=== PATIENT | male | born 1965 | race Caucasian/White ===

== ENCOUNTER 2018-12-30 06:33 | Emergency (ER) | payer OTHER ==
[~2018-12-30] VITALS: Ht 180.3 cm; Wt 57.2 kg
[2018-12-30 07:27] VITALS: BP 116/78
[2018-12-30] MEDS ORDERED: KETOROLAC TROMETH 60MG/2ML VIAL IM ONE (07:45)
[2018-12-30] MEDS ORDERED: METHOCARBAMOL 500 MG TAB PO ONE (07:45)
== END 2018-12-30 08:12 | disposition home or self-care (01) ==
LOC: ER 06:33
DX: M54.2 Cervicalgia (principal); G89.29 Other chronic pain; Z88.0 Allergy status to penicillin
CPT/HCPCS: 93005; 96372; 99283; J1885

== ENCOUNTER 2019-01-05 09:08 | Emergency (ER) | payer OTHER ==
[~2019-01-05] VITALS: Ht 177.8 cm; Wt 61.2 kg
[2019-01-05 09:35] VITALS: BP 116/75
[2019-01-05] MEDS ORDERED: KETOROLAC TROMETH 60MG/2ML VIAL IM ONE (10:00)
== END 2019-01-05 10:25 | disposition home or self-care (01) ==
LOC: ER 09:08
DX: G89.29 Other chronic pain (principal); M54.6 Pain in thoracic spine; Z88.0 Allergy status to penicillin
CPT/HCPCS: 93005; 96372; 99283; J1885

== ENCOUNTER 2024-08-30 00:06 | Inpatient (IN) | payer MEDICAID, OTHER ==
[~2024-08-30] VITALS: Ht 182.9 cm; Wt 60.9 kg
[2024-08-30] VITALS (8 sets, daily range): BP systolic 92–95; BP diastolic 58–60; PULSE 74–120; RESP 16–20; TEMP 98.2–99.8; O2SAT 94–98
--- NOTE | 2024-08-30 00:24 | ED.PDOC ---
SOB-HPI HPI Comments 59-year-old male who came to ER via EMS for cough. Per EMS, patient has been presenting with cough for the past few days. Was seen at [facility] 2 days ago as prescribed of medications, Mucinex among others, however patient did not fill up the prescription. Patient coming in today still with cough dry nonp roductive. Patient is a very poor informant. Chief Complaint: Cough Time Seen by MD: 00:24 Primary Care Provider: UNKNOWN Reviewed notes: Nurses Notes Information Source: Patient, Emergency Med Personnel Mode of Arrival: EMS Severity: Moderate Timing: Hours Duration: Since onset Context: At Rest, With Light Exertion PE Risk Factors: None History of: None Prehospital treatment: None Modifying Factors: Nothing Associated Signs and Symptoms: Cough If cough with SOB: Non-Productive Past Medical History PAST MEDICAL HISTORY: Denies Surgical History: Denies all surgeries Family History Family History: Reviewed,noncontributory to illness Social History Smoker: Non-Smoker Alcohol: Denies ETOH Use Drugs: Denies Drug Use Lives In: Home Constitutional: denies: chills, diaphoresis, fatigue, fever, malaise, sweats, weakness, others EENTM: denies: blurred vision, double vision, ear bleeding, ear discharge, ear drainage, ear pain, ear ringing, eye pain, eye redness, hearing loss, mouth pain, mouth swelling, nasal discharge, nose bleeding, nose congestion, nose pain, photophobia, tearing, throat pain, throat swelling, voice changes, others Respiratory: reports: cough; denies: hemoptysis, orthopnea, SOB at rest, shortness of breath, SOB with excertion, stridor, wheezing, others Cardiovascular: denies: chest pain, dizzy spells, diaphoresis, Dyspnea on exertion, edema, irregular heart beat, left arm pain, lightheadedness, palpitations, PND, syncope, others Gastrointestinal: denies: abdomen distended, abdominal pain, blood streaked bowels, constipated, diarrhea, dysphagia, difficulty swallowing, hematemesis, melena, nausea, poor appetite, poor fluid intake, rectal bleeding, rectal pain, vomiting, others Genitourinary: denies: burning, dysuria, flank pain, frequency, hematuria, incontinence, penile discharge, penile sore, pain, testicle pain, testicle swelling, urgency, others Neurological: denies: dizziness, fainting, headache, left sided numbness, left sided weakness, numbness, paresthesia, pre-existing deficit, right sided numbness, right sided weakness, seizure, speech problems, tingling, tremors, weakness, others Musculoskeletal: denies: back pain, gout, joint pain, joint swelling, muscle pain, muscle stiffness, neck pain, others Integumetry: denies: bruises, change in color, change in hair/nails, dryness, laceration, lesions, lumps, rash, wounds, others Allergic/Immunocompromised: denies: Difficulty Healing, Frequent Infections, Hives, Itching, others Hematologic/Lymphatic: denies: anemia, blood clots, easy bleeding, easy bruising, swollen glands, others Endocrine: denies: excessive hunger, excessive sweating, excessive thirst, excessive urination, flushing, intolerance to cold, intolerance to heat, unexplained weight gain, unexplained weight loss, others Psychiatric: denies: anxiety, bipolar disorder, depression, hopeless, panic disorder, schizophrenia, sleepless, suicidal, others Physical Exam General Appearance: No Apparent Distress, Normal HEENT: Normal ENT Inspection, Pharynx Normal, TMs Normal Neck: Full Range of Motion, Non-Tender, Normal, Normal Inspection Respiratory: Chest Non-Tender, Lungs Clear, No Accessory Muscle Use, No Respiratory Distress, Normal Breath Sounds Cardiovascular: No Edema, No JVD, No Murmur, No Gallop, Normal Peripheral Pulses, Regular Rate/Rhythm Breast Exam: Deferred Gastrointestinal: No Organomegaly, Non Tender, No Pulsatile Mass, Normal Bowel Sounds, Soft Genitalia: Deferred Pelvic: Deferred Rectal: Deferred Extremities: No calf tenderness, Normal capillary refill, Normal inspection, Normal range of motion, Non-tender, No pedal edema Musculoskeletal : Apperance: Normal 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 Was a procedure done?: No Differential Dx Differential Diagnosis: Asthma, Bronchitis, Pneumonia, Respiratory Distress, URI X-Ray, Labs, Meds, VS Vital Signs Date Time Temp Pulse Resp B/P (MAP) Pulse Ox O2 Delivery O2 Flow Rate FiO2 08/30/24 01:13 98.2 116 18 104/65 (78) 95 Lab Test 08/30/24 00:50 Range/Units White Blood Count 22.2 H 4.4-10.8 10^3/uL Red Blood Count 4.44 L 4.5-5.90 10^6/uL Hemoglobin 13.9 13.5-17.5 g/dL Hematocrit 41.5 41.0-53.0 % Mean Corpuscular Volume 93.4 80.0-100.0 fL Mean Corpuscular Hemoglobin 31.4 28.0-32.0 pg Mean Corpuscular Hemoglobin Concent 33.6 32.0-36.0 g/dL Red Cell Distribution Width 13.8 11.8-14.3 % Platelet Count 213 140-450 10^3/uL Mean Platelet Volume 10.1 6.9-10.8 fL Neutrophils (%) (Auto) 94.9 H 37.0-80.0 % Lymphocytes (%) (Auto) 2.4 L 10.0-50.0 % Monocytes (%) (Auto) 2.7 0.0-12.0 % Eosinophils (%) (Auto) 0.0 0.0-7.0 % Basophils (%) (Auto) 0.0 0.0-2.0 % Neutrophils # (Auto) 21.0 H 1.6-8.6 10 ^3/uL Lymphocytes # (Auto) 0.5 0.4-5.4 10 ^3/uL Monocytes # (Auto) 0.6 0-1.3 10 ^3/uL Eosinophils # (Auto) 0 0-0.8 10 ^3/uL Basophils # (Auto) 0 0-0.2 10 ^3/uL Nucleated Red Blood Cells 0.0 % Sodium Level 141 136-145 mmol/L Potassium Level 3.9 3.5-5.1 mmol/L Chloride Level 102 98-107 mmol/L Carbon Dioxide Level 26 20-31 mmol/L Anion Gap 13 5-15 Blood Urea Nitrogen 26 H 9-23 mg/dL Creatinine 1.17 0.700-1.30 mg/dL Glomerular Filtration Rate Calc 71 >90 mL/min BUN/Creatinine Ratio 22.2 H 10.0-20.0 Serum Glucose 100 74-106 mg/dL Calcium Level 9.5 8.7-10.4 mg/dL Total Bilirubin 1.2 H 0.2-1.0 mg/dL Aspartate Amino Transferase (AST) 47 H 13-40 U/L Alanine Aminotransferase (ALT) 35 7-40 U/L Alkaline Phosphatase 88 46-116 U/L Total Protein 7.8 5.7-8.2 g/dL Albumin 4.4 3.2-4.8 g/dL Time of 1ST Reevaluation: 00:21 Reevaluation 1ST: Unchanged Time of 2ND Reevaluation: 01:00 Reevaluation 2ND: Unchanged Time of 3RD Reevaluation: 04:35 Reevaluation 3RD: Unchanged Patient Education/Counseling: Diagnosis, Treatment Family Education/Counseling: No Family Present Departure 1 Departure Time of Disposition: 04:13 (WBC high, +SOB with exertion, will admit for supportive care and further workup) Impression: Primary Impression: Pneumonia Disposition: ADMITTED INPATIENT Admit to: Med Surg Condition: Guarded Discharged With: Self Critical Care Note Critical Care Time?: No Stability Stability form required: No Heart Score Heart Score: Heart Score Response (Comments) Value History N/A 0 EKG N/A 0 Age N/A 0 Risk Factors N/A 0 Troponin N/A 0 Total 0 I personally scribed for PRASHANT HEARD MD ([email or web address]) on 08/30/24 at 00:24. Electronically submitted by Adis Lloyd ([facility]). PRASHANT HEARD MD Aug 30, 2024 00:24
[2024-08-30] MEDS ORDERED: IPRATROPIUM BROM 0.5 MG/2.5ML INH SOL HHN ONE (00:30)
[2024-08-30] MEDS ORDERED: predniSONE 20 MG TAB PO ONE (00:30)
[2024-08-30] MEDS ORDERED: ALBUTEROL SULF 2.5 MG/0.5ML(0.5%) NEB SOLN HHN ONE (00:30)
[2024-08-30 01:16] LABS: Basophils # (auto) 0 10 ^3/uL (0-0.2); Eosinophils # (auto) 0 10 ^3/uL (0-0.8); Hematocrit 41.5 % (41.0-53.0); Hemoglobin 13.9 g/dL (13.5-17.5); Lymphocytes # (auto) 0.5 10 ^3/uL (0.4-5.4); Lymphocytes % (auto) 2.4 % (10.0-50.0); Mean Corpuscular Hemoglobin 31.4 pg (28.0-32.0); Mean Corpuscular Hgb Conc. 33.6 g/dL (32.0-36.0); Mean Corpuscular Volume 93.4 fL (80.0-100.0); Monocytes # (auto) 0.6 10 ^3/uL (0-1.3); Monocytes % (auto) 2.7 % (0.0-12.0); Neutrophils % (auto) 94.9 % (37.0-80.0); Platelet Count (auto) 213 10^3/uL (140-450); Red Blood Cells 4.44 10^6/uL (4.5-5.90); Red Cell Distribution Width 13.8 % (11.8-14.3); White Blood Cell 22.2 10^3/uL (4.4-10.8)
[2024-08-30 01:30] LABS: Alanine Aminotransferase 35 U/L (7-40); Albumin 4.4 g/dL (3.2-4.8); Alkaline Phosphatase 88 U/L (46-116); Anion Gap 13 (5-15); BUN/Creatinine Ratio 22.2 (10.0-20.0); Calcium 9.5 mg/dL (8.7-10.4); Carbon Dioxide 26 mmol/L (20-31); Chloride 102 mmol/L (98-107); Glucose 100 mg/dL (74-106); Potassium 3.9 mmol/L (3.5-5.1); Sodium 141 mmol/L (136-145); Total Protein 7.8 g/dL (5.7-8.2)
[2024-08-30 01:37] LABS: Aspartate Aminotransferase 47 U/L (13-40); Bilirubin, Total 1.2 mg/dL (0.2-1.0); Blood Urea Nitrogen 26 mg/dL (9-23)
--- NOTE | 2024-08-30 04:09 | DVH ---
CHEST RADIOGRAPH Indication: SOB Technique: Single frontal view of the chest was obtained Comparison: None IMPRESSION: The heart appears normal in size. Patchy airspace opacity at the right lower lung. Mild pulmonary va scular congestion and prominent interstitial markings. No sizable effusion or pneumothorax. Cervical fusion hardware.
[2024-08-30] MEDS: cefTRIAXone 1GM/50ML D5W 50 ML IV ONE (06:00)
[2024-08-30 06:30] LABS: Lactic Acid w/Reflex 2.3 mmol/L (0.4-2.0)
[2024-08-30] MEDS: AZITHROMYCIN 500MG/ 250ML 250 ML IV ONE (06:30)
[2024-08-30 07:36] LABS: Rapid Influenza A Negative (Negative); Rapid Influenza B Negative (Negative)
[2024-08-30] MEDS ORDERED: DOCUSATE SOD 100 MG CAP PO PRN (08:30)
[2024-08-30] MEDS ORDERED: ONDANSETRON HCL 4 MG/2 ML VIAL IV PRN (08:30)
--- NOTE | 2024-08-30 08:32 | DVHHP2 ---
History of Present Illness Reason for Visit: Cough History of Present Illness Dhruv Castaneda is a 59-year-old male who is a poor historian and who presents to the ED today for cough. Upon examination patient appears confused alert and oriented x2 to self and date of , unable to provide history of why the patient went to [place] also why he is here today. Patient reports that he takes medications but not sure exactly what. He also states he is allergic to penicillin but also not too sure what his allergies are. He states that he has pain management for his back pain. Patient denies smoking, illicit drug use, drinking, chest pain, shortness of breath, fever, chills, headache, nausea, vomiting, and diarrhea. Patient reports that he had multiple surgeries in his history but not sure exactly what. Past Surgical History: Other (Poor historian) Family History Poor historian Smoke: No ALCOHOL: none Drugs: None Lives: Other (With girlfriend) Domestic Violence: Neg Review of Systems Constitutional: No: Fever, Chills, Sweats, Weakness, Malaise, Other Eyes: No: Pain, Vision change, Conjunctivae inflammation, Eyelid inflammation, Other, Redness ENT: No: Ear pain, Ear discharge, Nose pain, Nose discharge, Nose congestion, Mouth pain, Mouth swelling, Throat pain, Throat swelling, Other Respiratory: Cough, Wheezing; No: Dry, Shortness of breath, SOB with excertion, Wheezing, Hemoptysis, Pleuritic Pain, Sputum, Other Cardiovascular: No: Chest Pain, Palpitations, Orthopnea, Paroxysmal Noc. Dyspnea, Edema, Lt Headedness, Other Gastrointestinal: No: Nausea, Vomiting, Abdominal Pain, Diarrhea, Constipation, Melena, Hematochezia, Other Genitourinary: No Dysuria, No Frequency, No Incontinence, No Hematuria, No Retention, No Other Musculoskeletal: No: other, neck pain, shoulder pain, arm pain, back pain, hand pain, leg pain, foot pain Skin: No: Rash, Lesions, Jaundice, Bruising, Other Neurological: No: Weakness, Numbness, Incoordination, Change in speech, Confusion, Seizures, Other Other Confused A&O x2 to self and date of Allergies: Coded Allergies: Penicillins (Verified Allergy, Unknown, 12/30/18) Exam Vital Signs Vital Signs Date Time Temp Pulse Resp B/P (MAP) Pulse Ox O2 Delivery O2 Flow Rate FiO2 12/21/24 06:00 120 18 95 Room Air* 0 21 08/30/24 06:00 99.3 137/70 (92) 99.3 General Appearance: Alert, Cooperative, No acute distress HEENT: Atraumatic, PERRLA, EOMI, Mucous membr. moist/pink Respiratory: Normal air movement Cardiovascular: Normal S1, Normal S2, No murmurs Abdominal: Normal bowel sounds, Soft, No tenderness, No hepatospenomegaly, No masses Extremities: No clubbing, No cyanosis, No edema, Normal pulses, No tenderness/swelling Skin: No breakdown, No significant lesion Neuro: Normal tone, Sensation intact Psych/Mental Status: Mood NL, Other (A&O x2 to self and date of ) Labs/Xrays Labs Test 08/30/24 07:00 08/30/24 05:38 08/30/24 00:50 Range/Units Influenza Type A Antigen Negative Negative Influenza Type B Antigen Negative Negative Lactic Acid Level 2.3 *H 0.4-2.0 mmol/L White Blood Count 22.2 H 4.4-10.8 10^3/uL Red Blood Count 4.44 L 4.5-5.90 10^6/uL Hemoglobin 13.9 13.5-17.5 g/dL Hematocrit 41.5 41.0-53.0 % Mean Corpuscular Volume 93.4 80.0-100.0 fL Mean Corpuscular Hemoglobin 31.4 28.0-32.0 pg Mean Corpuscular Hemoglobin Concent 33.6 32.0-36.0 g/dL Red Cell Distribution Width 13.8 11.8-14.3 % Platelet Count 213 140-450 10^3/uL Mean Platelet Volume 10.1 6.9-10.8 fL Neutrophils (%) (Auto) 94.9 H 37.0-80.0 % Lymphocytes (%) (Auto) 2.4 L 10.0-50.0 % Monocytes (%) (Auto) 2.7 0.0-12.0 % Eosinophils (%) (Auto) 0.0 0.0-7.0 % Basophils (%) (Auto) 0.0 0.0-2.0 % Neutrophils # (Auto) 21.0 H 1.6-8.6 10 ^3/uL Lymphocytes # (Auto) 0.5 0.4-5.4 10 ^3/uL Monocytes # (Auto) 0.6 0-1.3 10 ^3/uL Eosinophils # (Auto) 0 0-0.8 10 ^3/uL Basophils # (Auto) 0 0-0.2 10 ^3/uL Nucleated Red Blood Cells 0.0 % Sodium Level 141 136-145 mmol/L Potassium Level 3.9 3.5-5.1 mmol/L Chloride Level 102 98-107 mmol/L Carbon Dioxide Level 26 20-31 mmol/L Anion Gap 13 5-15 Blood Urea Nitrogen 26 H 9-23 mg/dL Creatinine 1.17 0.700-1.30 mg/dL Glomerular Filtration Rate Calc 71 >90 mL/min BUN/Creatinine Ratio 22.2 H 10.0-20.0 Serum Glucose 100 74-106 mg/dL Calcium Level 9.5 8.7-10.4 mg/dL Total Bilirubin 1.2 H 0.2-1.0 mg/dL Aspartate Amino Transferase (AST) 47 H 13-40 U/L Alanine Aminotransferase (ALT) 35 7-40 U/L Alkaline Phosphatase 88 46-116 U/L Total Protein 7.8 5.7-8.2 g/dL Albumin 4.4 3.2-4.8 g/dL CHEST RADIOGRAPH Indication: SOB Technique: Single frontal view of the chest was obtained Comparison: None IMPRESSION: The heart appears normal in size. Patchy airspace opacity at the right lower lung. Mild pulmonary vascular congestion and prominent interstitial markings. No sizable effusion or pneumothorax. Cervical fusion hardware. 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 Procedure Category Date Status Time Ceftriaxone 1gm/50ml PHA 08/30/24 Logged D5w (Rocephin) 09:00 Azithromycin 500mg/ PHA 08/30/24 Logged 250ml (Zithromax 50 10:00 Methylprednisolone PHA 08/30/24 Logged Sod Succ (Solu Medrol 10:00 Albuterol Medneb PHA 08/30/24 Logged (Ventolin Medneb) 12:00 Albuterol Medneb PHA 08/30/24 Logged (Ventolin Medneb) 08:30 Ipratropium Medneb PHA 08/30/24 Logged (Atrovent Medneb) 12:00 Ipratropium Medneb PHA 08/30/24 Logged (Atrovent Medneb) 08:30 Chest Xray 1 View XY 08/31/24 Logged 04:00 Lactic Acid W/ Reflex LAB 08/31/24 Verified Order 04:00 Electrocardigram EKG 08/31/24 Logged 04:00 Date of Service: Aug 30, 2024 Billing Provider: BELLA VAUGHAN Common Visit Codes: [id number] INP/OBS CARE (MOD) BELLA VAUGHAN Aug 30, 2024 08:32
[2024-08-30] MEDS: SODIUM CHLORIDE 0.9% 1,000 ML IV SCH (09:34)
[2024-08-30] MEDS: methylPREDNISolone SOD SUCC 40 MG/ML VL IV SCH (09:51)
[2024-08-30] MEDS: ENOXAPARIN SOD 40 MG/0.4 ML SYRINGE SC SCH (09:52)
[2024-08-30] MEDS: IPRATROPIUM BROM 0.5 MG/2.5ML INH SOL NEB SCH (11:20)
[2024-08-30] MEDS: ALBUTEROL SULF 2.5 MG/0.5ML(0.5%) NEB SOLN NEB SCH (11:20)
[2024-08-31] VITALS (14 sets, daily range): BP systolic 74–123; BP diastolic 48–67; PULSE 50–79; RESP 16–20; TEMP 97.4–98.3; O2SAT 93–100
[2024-08-31] MEDS ORDERED: BENZ100C97 PO (01:52)
[2024-08-31] MEDS ORDERED: ACET-1881 PO (01:52)
[2024-08-31] MEDS ORDERED: PSEU120T18 PO (01:52)
--- NOTE | 2024-08-31 05:09 | DVH ---
CHEST RADIOGRAPH Indication: pna Technique: Single frontal view of the chest was obtained Comparison: XY CHEST PORTABLE on DOS: 08/30/24 IMPRESSION: The heart appears relatively normal in size. Linear patchy airspace opacity in the right mid lung and patchy airspace opacity in the left lower lung. No sizable effusion or pneumothorax. Extensive cervi chauncey and thoracic hardware.
[2024-08-31] MEDS: ACETAMINOPHEN 325 MG TAB PO PRN (05:55)
[2024-08-31 07:03] LABS: Basophils # (auto) 0 10 ^3/uL (0-0.2); Basophils % (auto) 0.1 % (0.0-2.0); Eosinophils # (auto) 0 10 ^3/uL (0-0.8); Hematocrit 34.1 % (41.0-53.0); Hemoglobin 11.5 g/dL (13.5-17.5); Lymphocytes # (auto) 0.9 10 ^3/uL (0.4-5.4); Lymphocytes % (auto) 5.5 % (10.0-50.0); Mean Corpuscular Hemoglobin 31.5 pg (28.0-32.0); Mean Corpuscular Hgb Conc. 33.7 g/dL (32.0-36.0); Mean Corpuscular Volume 93.5 fL (80.0-100.0); Monocytes # (auto) 1.2 10 ^3/uL (0-1.3); Neutrophils # (auto) 14.6 10 ^3/uL (1.6-8.6); Neutrophils % (auto) 87.4 % (37.0-80.0); Platelet Count (auto) 310 10^3/uL (140-450); Red Blood Cells 3.65 10^6/uL (4.5-5.90); White Blood Cell 16.8 10^3/uL (4.4-10.8)
[2024-08-31 07:26] LABS: Alanine Aminotransferase 39 U/L (7-40); Albumin 3.6 g/dL (3.2-4.8); Alkaline Phosphatase 72 U/L (46-116); Anion Gap 6 (5-15); BUN/Creatinine Ratio 40.5 (10.0-20.0); Calcium 8.7 mg/dL (8.7-10.4); Carbon Dioxide 28 mmol/L (20-31); Chloride 105 mmol/L (98-107); Potassium 3.5 mmol/L (3.5-5.1); Sodium 139 mmol/L (136-145)
[2024-08-31 07:27] LABS: Bilirubin, Total 0.6 mg/dL (0.2-1.0); Total Protein 6.5 g/dL (5.7-8.2)
[2024-08-31 07:35] LABS: Aspartate Aminotransferase 46 U/L (13-40); Blood Urea Nitrogen 34 mg/dL (9-23); Glucose 136 mg/dL (74-106)
[2024-08-31] MEDS: MIDODRINE HCL 10 MG TAB PO ONE (08:21)
[2024-08-31] MEDS: SODIUM CHLORIDE 0.9% 500 ML IV ONE ×2 (08:21→11:34)
[2024-08-31] MEDS ORDERED: cefTRIAXone 1GM/50ML D5W 50 ML IV SCH (09:00)
[2024-08-31] MEDS ORDERED: VANCOMYCIN PER PHARMACY 0 MG IV SCH (09:45)
[2024-08-31] MEDS ORDERED: AZITHROMYCIN 500MG/ 250ML 250 ML IV SCH (10:00)
[2024-08-31 10:41] LABS: Magnesium 2.3 mg/dL (1.6-2.6)
[2024-08-31] MEDS ORDERED: SODIUM CHLORIDE 0.9% 1,000 ML IV SCH (10:45)
[2024-08-31 11:13] LABS: Blood Alcohol < 3.0 mg/dL (<10)
[2024-08-31] MEDS: SODIUM CHLORIDE 0.9% 1,000 ML IV SCH (11:30)
[2024-08-31] MEDS ORDERED: VANCOMYCIN 750MG KIT 100 ML IV SCH (12:00)
--- NOTE | 2024-08-31 12:00 | DVHPNRES ---
Progress Note Date Seen: Aug 31, 2024 Resident Creating Document: PIA HALL RESIDENT Medical Necessity Reason Pt with a Central, PICC or Fol: No Subjective Review of Systems Patient is 59 years old male with a history of back pain, cervical neck surgery for neck fusion site cervical 5-6 came with a complaint of cough for last 2 weeks. As per patient patient has been having cough and cold for last 2 weeks. Patient's cough was positive with a greenish yellow sputum, or transudative some running nose. Patient also endorsed fever up to 102 F. reported that he went to [facility] and they gave him some medication like Mucinex and other medication but he did not feel of the prescription.. patient reported that he does not recall why he came in and could not provide detailed history why he is here. Patient reported I do not know how I gotten here. Patient also reported sick contact, his girlfriend also got sick after he was sick. Denied chest pain, constipation, diarrhea, dysuria, acute joint pain or swelling. Initial lab workup revealed leukocytosis with WBC 22.2, mildly elevated AST, serum glucose 136, BUN creatinine ratio 40.6, BUN 34., HGB A1c 5.4, TSH 0.75, sodium 141, patient is a 0.9. Patient tested negative for influenza type A and B CXR revealed- Patchy airspace opacity at the right lower lung. Mild pulmonary vascular congestion and prominent interstitial markings. No sizable effusion or pneumothorax. Cervical fusion hardware. PMH-back pain, cervical neck surgery for neck fusion site cervical 5-6 PSH- cervical spine surgery Allergy- penicillin Personal History/ Social History- denies smoking/alcoholism/drug abuse, lives with girlfriend at home Patient was seen today at the bedside. Patient some coughing Cardiovascular- deny acute chest pain or shortness of breath or cough or palpitation Respiratory- denies cough or short of breath or wheezing Gastrointestinal- denies any rectal bleeding, nausea or vomiting Musculoskeletal-denies acute joint swelling or tenderness or redness Neurological- denies acute dysarthria, dysphagia, change in vision Psychiatry- denies depression or SI or HI Skin- denies acute rash or purpura Patient is seen today for clinical evaluation. Labs and chart reviewed. Patient on antibiotic ceftriaxone and azithromycin. Tolerating well. Leukocytosis trending down, today WBC 16.8. HGB A1c 5.4, TSH .75. Lactic acidosis improving, today lactic acid 1.4. Order COVID-19. Objective vital signs Vital Sign Date Time Temp Pulse Resp B/P (MAP) Pulse Ox O2 Delivery O2 Flow Rate FiO2 08/31/24 05:42 62 18 100 08/31/24 05:37 Room Air 0.0 08/31/24 05:37 21 08/31/24 05:00 98.1 95/57 (70) 98.1 Total Intake and Output 08/30/24 08/30/24 08/31/24 15:00 23:00 07:00 Intake Total 635 ml 560 ml 901 ml Output Total 150 ml Balance 635 ml 560 ml 751 ml medications Current Medications Medications Dose Ordered Sig/Rema Route Start Time Stop Time Status Last Admin Dose Admin Methylprednisolone Sodium Succinate 40 mg DAILY IV 08/30/24 10:00 08/30/24 09:51 40 MG Albuterol 2.5 mg Q6HWA NEB 08/30/24 12:00 08/31/24 05:37 2.5 MG Albuterol 2.5 mg Q4HPRN PRN NEB 08/30/24 08:30 Ipratropium [place] 0.5 mg Q6HWA NEB 08/30/24 12:00 08/31/24 05:37 0.5 MG Ipratropium [place] 0.5 mg Q4HPRN PRN NEB 08/30/24 08:30 Ondansetron HCl 4 mg Q4HP PRN IV 08/30/24 08:30 Docusate Sodium 100 mg BIDPRN PRN PO 08/30/24 08:30 Enoxaparin Sodium 40 mg DAILY SC 08/30/24 10:00 08/30/24 09:52 40 MG Acetaminophen 650 mg Q6HP PRN PO 08/30/24 08:30 08/31/24 05:55 650 MG Piperacillin Sod/ Tazobactam Sod 100 ml @ 25 mls/hr Q8HR IV 08/31/24 14:00 Acetaminophen/ Hydrocodone Bitart 1 tab Q4HP PRN PO 08/31/24 09:30 Ketorolac Tromethamine 30 mg Q6HPRN PRN IV 08/31/24 09:30 09/01/24 11:00 Vancomycin HCl 0 ml @ 0 mls/hr UD IV 08/31/24 09:45 Vancomycin HCl 100 ml @ 100 mls/hr Q12H IV 08/31/24 12:00 Midodrine 10 mg Q6HPRN PRN PO 08/31/24 10:45 Sodium Chloride 1,000 ml @ 125 mls/hr Q8H IV 08/31/24 11:30 Examination General examination- awake, alert, oriented, conversant HEENT- PEERLA, no acute nasal discharge Cardiovascular- S1-S2 audible, rate and rhythm regular, no murmur Respiratory- CTAB, no wheeze or rhonchi Gastrointestinal-nontender, bowel sound+. Nondistended Musculoskeletal-no acute joint swelling or tenderness or redness# Lower extremity- no leg edema Neurological- cranial nerves intact, no acute dysarthria or dysphagia Psychiatry- denies depression or SI or HI Skin- no acute rash or purpura laboratory and microbiology Laboratory Tests 08/31/24 06:42 Test 08/31/24 06:42 Range/Units Serum Glucose 136 H 74-106 mg/dL Microbiology Date/Time Source Procedure Growth Status 08/30/24 05:38 Blood Blood Culture - Preliminary NO GROWTH AFTER 24 HOURS OF INCUBATION. Resulted Problem List/Assessment/Plan Problem List/Assessment/Plan # acute hypoxic respiratory failure likely due to pneumonia -patient could not complete a full sentence -patient on NC O2 as required -CXR revealed- Patchy airspace opacity at the right lower lung. Mild pulmonary vascular congestion and prominent interstitial markings -continue ceftriaxone g IV daily -continue azithromycin 500 mg daily -continue nebulization as prescribed -pending sputum culture, blood culture, urine culture # acute pneumonia likely bacterial Gram-positive versus Gram-negative -CXR revealed- Patchy airspace opacity at the right lower lung. Mild pulmonary vascular congestion and prominent interstitial markings -continue ceftriaxone g IV daily -continue azithromycin 500 mg daily -continue nebulization as prescribed # sepsis likely due to pneumonia --CXR revealed- Patchy airspace opacity at the right lower lung. Mild pulmonary vascular congestion and prominent interstitial markings -continue ceftriaxone g IV daily -continue azithromycin 500 mg daily -continue nebulization as prescribed -continue normal saline 125 mL/hour -monitor vitals # hypotension likely due to sepsis -continue IV normal saline 125 mL/hour -continue midodrine p.r.n. as prescribed # leukocytosis likely due to pneumonia -continue current management # CLARK likely due to VMN/hemodynamic cause -continue normal saline 125 mL/hour as prescribed # lactic acidosis likely due to hypoxia due to pneumonia improved -continue current management # history of back pain, status post cervical spine surgery -continue current pain meds as prescribed # failure to thrive -dietary consult Goals of care/advance care planning; FULL CODE; discussed with the patient >15 minutes PUD prophylaxis: Famotidine DVT prophylaxis: Lovenox Plan discussed with Dr. Damon, nursing staff, patient Total time spent on patient evaluation, chart review, assessment and plan, discussion discussion >30 minutes Plan discussed with: Patient Plan discussed with: Patient, Other (RN) My Orders My Orders Orders - PIA HALL Procedure Category Date Status Time Urinalysis LAB 08/31/24 Logged 09:49 Urine Bacterial JULIENNE 08/31/24 Logged Culture 09:49 Drug Screen LAB 08/31/24 Logged 09:49 Midodrine Tablet PHA 08/31/24 In Process (Proamatine Tablet) 10:45 Respiratory Culture JULIENNE 08/31/24 Logged W/ Gs 10:45 Sodium Chloride 0.9% PHA 08/31/24 In Process 11:30 Date of Service: Aug 31, 2024 Billing Provider: ANTONIO DAMON MD Common Visit Codes: [id number] INP/OBS CARE(HIGH) Secondary Visit Codes: [id number] CARE PLAN 30 MINUTES PIA HALL Aug 31, 2024 12:00 ANTONIO DAMON MD Sep 02, 2024 20:22
[2024-08-31] MEDS: HYDROcodone-ACET 10/325MG TAB PO PRN (12:31)
[2024-08-31] MEDS ORDERED: MORPHINE SULFATE INJ 2 MG/ml SYRG IV PRN (12:45)
[2024-08-31] MEDS: MIDODRINE HCL 10 MG TAB PO PRN (13:31)
[2024-08-31] MEDS: FAMOTIDINE (10MG/ML) 2ML VL IV ONE (13:31)
[2024-08-31] MEDS: AZITHROMYCIN 500MG/ 250ML 250 ML IV ONE (13:32)
[2024-08-31] MEDS ORDERED: PIPERACILLIN-TAZOB 3.375GM 100 ML IV SCH (14:00)
[2024-08-31] MEDS: KETOROLAC TROMETH 30 MG/ML 1ML VIAL IV PRN (14:23)
[2024-08-31 20:38] LABS: Urine Bacteria None Seen /hpf (None Seen)
[2024-08-31 20:46] LABS: Urine Blood Negative /uL (Negative); Urine Clarity Clear (Clear); Urine Color Yellow (Yellow); Urine Mucus FEW (None Seen); Urine Protein, UAD TRACE (Negative); Urine Specific Gravity 1.027 (1.001-1.035); Urine Squamous Epithelial Cell FEW /hpf (<5); Urine Urobilinogen 2 mg/dL (Negative); Urine WBC 1 /hpf (0 - 3); Urine pH 5.5 (5.0-9.0)
[2024-08-31 20:57] LABS: Opiate Scree,Urine Neg (NEGATIVE)
[2024-08-31 21:29] LABS: Amphetamine Screen, Urine Pos (NEGATIVE); Barbiturate Scree,Urine Neg (NEGATIVE); Benzodiazephine Screen, Urine Neg (NEGATIVE); Phencyclidine Screen, Urine Neg (NEGATIVE)
[2024-08-31 21:30] LABS: Cannabinoid Screen, Urine Neg (NEGATIVE); Cocaine Screen, Urine Neg (NEGATIVE)
[2024-08-31] MEDS: FAMOTIDINE (10MG/ML) 2ML VL IV SCH (21:33)
[2024-08-31 23:16] LABS: COVID19 ANTIGEN SOFIA FIA NEGATIVE (NEGATIVE)
[2024-09-01] VITALS (20 sets, daily range): BP systolic 87–108; BP diastolic 48–68; PULSE 55–97; RESP 16–20; TEMP 97.3–97.8; O2SAT 95–100
[2024-09-01] MEDS: IPRATROPIUM BROM 0.5 MG/2.5ML INH SOL NEB PRN (00:44)
[2024-09-01] MEDS: ALBUTEROL SULF 2.5 MG/0.5ML(0.5%) NEB SOLN NEB PRN (00:44)
[2024-09-01 06:14] LABS: Basophils # (auto) 0 10 ^3/uL (0-0.2); Basophils % (auto) 0.1 % (0.0-2.0); Eosinophils # (auto) 0 10 ^3/uL (0-0.8); Eosinophils % (auto) 0.4 % (0.0-7.0); Hematocrit 30.7 % (41.0-53.0); Hemoglobin 10.4 g/dL (13.5-17.5); Lymphocytes # (auto) 1.1 10 ^3/uL (0.4-5.4); Lymphocytes % (auto) 14.1 % (10.0-50.0); Mean Corpuscular Volume 94.2 fL (80.0-100.0); Monocytes # (auto) 0.8 10 ^3/uL (0-1.3); Neutrophils # (auto) 5.9 10 ^3/uL (1.6-8.6); Neutrophils % (auto) 75.4 % (37.0-80.0); Platelet Count (auto) 316 10^3/uL (140-450); Red Blood Cells 3.26 10^6/uL (4.5-5.90); White Blood Cell 7.8 10^3/uL (4.4-10.8)
[2024-09-01 06:16] LABS: Sodium 143 mmol/L (136-145)
[2024-09-01 06:17] LABS: Anion Gap 5 (5-15); Carbon Dioxide 28 mmol/L (20-31)
[2024-09-01 06:22] LABS: Glucose 95 mg/dL (74-106)
[2024-09-01 06:23] LABS: BUN/Creatinine Ratio 39.2 (10.0-20.0); Magnesium 2.3 mg/dL (1.6-2.6)
[2024-09-01 06:25] LABS: Blood Urea Nitrogen 29 mg/dL (9-23); Calcium 8.4 mg/dL (8.7-10.4); Chloride 110 mmol/L (98-107)
[2024-09-01] MEDS ORDERED: MIDODRINE HCL 10 MG TAB PO SCH ×3 (06:45→12:00)
[2024-09-01 08:54] LABS: Hepatitis B Surface Antigen Negative (Negative)
[2024-09-01 09:25] LABS: Hepatitis C Antibody Negative (Negative)
[2024-09-01] MEDS: cefTRIAXone 1GM/50ML D5W 50 ML IV SCH (09:51)
[2024-09-01] MEDS: SODIUM CHLORIDE 0.9% 250 ML IV ONE (11:12)
[2024-09-01] MEDS: AZITHROMYCIN 500MG/ 250ML 250 ML IV SCH (13:13)
--- NOTE | 2024-09-01 15:18 | DVHSR ---
APPROVED REPORT EXAM: Two-dimensional and M-mode echocardiogram with Doppler and color Doppler. Blood Pressure: 87/48 mmHg INDICATION Hypotension RISK FACTORS Height: 6', Weight: 134 DIMENSIONS LVDd5.0 (3.8-5.7cm)LA (2D)4.5 (1.9-4.0cm)Aortic Root3.1 (2.0-3.7cm) LVDs3.1 (2.5-4.0cm)LA (MM) (1.9-4.0cm)Aortic Cusp Exc1.7 (1.5-2.0cm) EF (%) 67.0 (55-70%)Rt. Atrium4.1 (1.9-4.0cm)Asc. Aorta3.3 cm IVSd0.7 (0.7-1.1cm)RV (D)4.7 (1.8-2.4cm) PWd0.7 (0.7-1.1cm) Mitral Valve MitralMitral Stenosis E wave0.84m/sMV Mean GR.mmHg A wave0.65m/sMV Peak GR.mmHg E/A ratio1.32D MVAcm2 DECEL [id number] 1/2 Timems Aortic Valve Aortic ValveAortic Stenosis V11.16m/Mabel Mean GR.3mmHg V21.13m/Mabel Peak GR.5mmHg LVOT Diameter1.8 (1.8-2.4cm)Doppler AVA2.61cm2 Pulmonic Valve V20.82m/s Tricuspid Valve TR Velocity2.62m/s [id number] Conclusion Normal left ventricular size and dimension. Normal left ventricular systolic function estimated ejec tion fraction 60%. There is a grade 1 diastolic dysfunction. Normal right ventricular size and dimension. Normal right ventricular systolic function. Slightly i ncreased right ventricular systolic [id number] mm of mercury Normal biatrial size and dimension. Normal aortic valve structure and function. Normal mitral valve structure and function. Normal tricuspid valve structure and function. The pulmonary valve is grossly normal. No pericardial effusion.
--- NOTE | 2024-09-01 15:21 | ECG ---
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
--- NOTE | 2024-09-01 17:21 | DVHPNRES ---
Progress Note Date Seen: Sep 01, 2024 Resident Creating Document: PIA HALL RESIDENT Medical Necessity Reason Pt with a Central, PICC or Fol: No Subjective Review of Systems Patient is 59 years old male with a history of back pain, cervical neck surgery for neck fusion site cervical 5-6 came with a complaint of cough for last 2 weeks. As per patient patient has been having cough and cold for last 2 weeks. Patient's cough was positive with a greenish yellow sputum, or transudative some running nose. Patient also endorsed fever up to 102 F. reported that he went to [place] [facility] and they gave him some medication like Mucinex and other medication but he did not feel of the prescription.. patient reported that he does not recall why he came in and could not provide detailed history why he is here. Patient reported I do not know how I gotten here. Patient also reported sick contact, his girlfriend also got sick after he was sick. Denied chest pain, constipation, diarrhea, dysuria, acute joint pain or swelling. Initial lab workup revealed leukocytosis with WBC 22.2, mildly elevated AST, serum glucose 136, BUN creatinine ratio 40.6, BUN 34., HGB A1c 5.4, TSH 0.75, sodium 141, patient is a 0.9. Patient tested negative for influenza type A and B CXR revealed- Patchy airspace opacity at the right lower lung. Mild pulmonary vascular congestion and prominent interstitial markings. No sizable effusion or pneumothorax. Cervical fusion hardware. ECHO 2D- Normal left ventricular size and dimension. Normal left ventricular systolic function estimated ejection fraction 60%. There is a grade 1 diastolic dysfunction. Normal right ventricular size and dimension. Normal right ventricular systolic function. Slightly increased right ventricular systolic [id number] mm of mercury PMH-back pain, cervical neck surgery for neck fusion site cervical 5-6 PSH- cervical spine surgery Allergy- penicillin Personal History/ Social History- denies smoking/alcoholism/drug abuse, lives with girlfriend at home Patient was seen today at the bedside. Patient some coughing Cardiovascular- deny acute chest pain or shortness of breath or cough or palpitation Respiratory- denies cough or short of breath or wheezing Gastrointestinal- denies any rectal bleeding, nausea or vomiting Musculoskeletal-denies acute joint swelling or tenderness or redness Neurological- denies acute dysarthria, dysphagia, change in vision Psychiatry- denies depression or SI or HI Skin- denies acute rash or purpura Patient is seen today for clinical evaluation. Labs and chart reviewed. Patient complained of feeling tired. Patient's blood pressure is still in the lower trend. IV normal saline 250 mL bolus was given. Patient on antibiotic ceftriaxone and azithromycin. Tolerating well. Ordered dietary consult for failure to thrive Objective vital signs Vital Sign Date Time Temp Pulse Resp B/P (MAP) Pulse Ox O2 Delivery O2 Flow Rate FiO2 09/01/24 13:00 97.5 76 16 97/61 (73) 95 97.5 09/01/24 11:45 Nasal Cannula 2.0 09/01/24 11:45 28 Total Intake and Output 08/31/24 08/31/24 09/01/24 14:59 22:59 06:59 Intake Total 480 ml 1455 ml 1875 ml Output Total 1425 ml 175 ml Balance 480 ml 30 ml 1700 ml medications Current Medications Medications Dose Ordered Sig/Rema Route Start Time Stop Time Status Last Admin Dose Admin Albuterol 2.5 mg Q6HWA NEB 08/30/24 12:00 09/01/24 11:45 2.5 MG Albuterol 2.5 mg Q4HPRN PRN NEB 08/30/24 08:30 09/01/24 10:02 2.5 MG Ipratropium [place] 0.5 mg Q6HWA NEB 08/30/24 12:00 09/01/24 11:45 0.5 MG Ipratropium [place] 0.5 mg Q4HPRN PRN NEB 08/30/24 08:30 09/01/24 10:02 0.5 MG Ondansetron HCl 4 mg Q4HP PRN IV 08/30/24 08:30 Docusate Sodium 100 mg BIDPRN PRN PO 08/30/24 08:30 Enoxaparin Sodium 40 mg DAILY SC 08/30/24 10:00 09/01/24 09:55 40 MG Acetaminophen 650 mg Q6HP PRN PO 08/30/24 08:30 08/31/24 05:55 650 MG Acetaminophen/ Hydrocodone Bitart 1 tab Q4HP PRN PO 08/31/24 09:30 09/01/24 11:10 1 TAB Sodium Chloride 1,000 ml @ 125 mls/hr Q8H IV 08/31/24 11:30 09/01/24 11:30 125 MLS/HR Famotidine 20 mg Q12HR IV 08/31/24 22:00 09/01/24 09:54 20 MG Ceftriaxone Sodium 50 ml @ 100 mls/hr DAILY@09 IV 09/01/24 09:00 09/01/24 09:51 100 MLS/HR Azithromycin 250 ml @ 125 mls/hr DAILY IV 09/01/24 10:00 09/01/24 13:13 125 MLS/HR Examination General examination- awake, alert, oriented, conversant HEENT- PEERLA, no acute nasal discharge Cardiovascular- S1-S2 audible, rate and rhythm regular, no murmur Respiratory- CTAB, no wheeze or rhonchi Gastrointestinal-nontender, bowel sound+. Nondistended Musculoskeletal-no acute joint swelling or tenderness or redness# Lower extremity- no leg edema Neurological- cranial nerves intact, no acute dysarthria or dysphagia Psychiatry- denies depression or SI or HI Skin- no acute rash or purpura laboratory and microbiology Laboratory Tests 09/01/24 05:10 Test 09/01/24 05:10 Range/Units Serum Glucose 95 74-106 mg/dL Microbiology Date/Time Source Procedure Growth Status 08/31/24 19:30 Voided Urine Urine Culture - Preliminary Resulted 08/31/24 01:40 Nose MRSA Screen - Final Complete 08/30/24 05:38 Blood Blood Culture - Preliminary NO GROWTH AFTER 48 HOURS OF INCUBATION. Resulted Problem List/Assessment/Plan Problem List/Assessment/Plan #Acute hypoxic respiratory failure likely due to pneumonia -patient could not complete a full sentence -patient on NC O2 as required -CXR revealed- Patchy airspace opacity at the right lower lung. Mild pulmonary vascular congestion and prominent interstitial markings -continue ceftriaxone g IV daily -continue azithromycin 500 mg daily -continue nebulization as prescribed -pending sputum culture, blood culture, urine culture #Acute pneumonia likely bacterial Gram-positive versus Gram-negative -CXR revealed- Patchy airspace opacity at the right lower lung. Mild pulmonary vascular congestion and prominent interstitial markings -continue ceftriaxone g IV daily -continue azithromycin 500 mg daily -continue nebulization as prescribed #Sepsis likely due to pneumonia --CXR revealed- Patchy airspace opacity at the right lower lung. Mild pulmonary vascular congestion and prominent interstitial markings -continue ceftriaxone g IV daily -continue azithromycin 500 mg daily -continue nebulization as prescribed -continue normal saline 125 mL/hour -monitor vitals # hypotension likely due to sepsis -continue IV normal saline 125 mL/hour -monitor blood pressure #Leukocytosis likely due to pneumonia -continue current management # CLARK likely due to VMN/hemodynamic cause -continue normal saline 125 mL/hour as prescribed # lactic acidosis likely due to hypoxia due to pneumonia improved -continue current management #History of back pain, status post cervical spine surgery -continue current pain meds as prescribed # failure to thrive -dietary consult # ECHO 2D-LVEF 60% Goals of care/advance care planning; FULL CODE; discussed with the patient >15 minutes PUD prophylaxis: Famotidine DVT prophylaxis: Lovenox Plan discussed with Dr. Damon, nursing staff, patient Total time spent on patient evaluation, chart review, assessment and plan, discussion discussion >30 minutes Plan discussed with: Patient Plan discussed with: Patient, Other (RN) My Orders My Orders Orders - PIA HALL Procedure Category Date Status Time Echo 2d Mode Cardiac US 09/01/24 Resulted DOP 06:32 Electrocardigram EKG 09/01/24 Logged 11:04 * Dietary Consult CONS 09/01/24 Transmitted 17:18 Date of Service: Sep 01, 2024 Billing Provider: ANTONIO DAMON MD Common Visit Codes: [id number] INP/OBS CARE(HIGH) PIA HALL Sep 01, 2024 17:21 ANTONIO DAMON MD Sep 02, 2024 20:22
[2024-09-01] MEDS: KETOROLAC TROMETH 30 MG/ML 1ML VIAL IV PRN (20:03)
[2024-09-02] VITALS (10 sets, daily range): BP systolic 96–109; BP diastolic 55–68; PULSE 50–101; RESP 14–20; TEMP 97.9–98.4; O2SAT 94–100
[2024-09-02 07:04] LABS: Anion Gap 6 (5-15); Carbon Dioxide 25 mmol/L (20-31); Potassium 3.7 mmol/L (3.5-5.1); Sodium 142 mmol/L (136-145)
[2024-09-02 07:06] LABS: Basophils # (auto) 0 10 ^3/uL (0-0.2); Basophils % (auto) 0.1 % (0.0-2.0); Eosinophils # (auto) 0 10 ^3/uL (0-0.8); Eosinophils % (auto) 0.7 % (0.0-7.0); Hematocrit 30.2 % (41.0-53.0); Hemoglobin 10.5 g/dL (13.5-17.5); Lymphocytes # (auto) 1.1 10 ^3/uL (0.4-5.4); Lymphocytes % (auto) 15.9 % (10.0-50.0); Mean Corpuscular Hemoglobin 32.4 pg (28.0-32.0); Mean Corpuscular Hgb Conc. 34.6 g/dL (32.0-36.0); Mean Corpuscular Volume 93.5 fL (80.0-100.0); Monocytes # (auto) 0.8 10 ^3/uL (0-1.3); Monocytes % (auto) 12.2 % (0.0-12.0); Neutrophils # (auto) 4.7 10 ^3/uL (1.6-8.6); Neutrophils % (auto) 71.1 % (37.0-80.0); Nucleated Red Blood Cells % 0.1 %; Platelet Count (auto) 345 10^3/uL (140-450); Red Blood Cells 3.22 10^6/uL (4.5-5.90); Red Cell Distribution Width 14.1 % (11.8-14.3); White Blood Cell 6.7 10^3/uL (4.4-10.8)
[2024-09-02 07:10] LABS: BUN/Creatinine Ratio 34.8 (10.0-20.0); Blood Urea Nitrogen 16 mg/dL (9-23); Glucose 91 mg/dL (74-106)
[2024-09-02 07:11] LABS: Magnesium 1.8 mg/dL (1.6-2.6)
[2024-09-02 07:12] LABS: Calcium 8.4 mg/dL (8.7-10.4); Chloride 111 mmol/L (98-107)
[2024-09-02] MEDS ORDERED: DEXT1SYP9 PO (10:10)
[2024-09-02] MEDS ORDERED: LEVO500T91 PO (10:10)
[2024-09-02] MEDS: guaiFENesin-DM 100/10mg/5ml SYR PO PRN (12:07)
--- NOTE | 2024-09-02 15:00 | DVHPNRES ---
Progress Note Date Seen: Sep 02, 2024 Resident Creating Document: PIA HALL RESIDENT Medical Necessity Reason Pt with a Central, PICC or Fol: No Subjective Review of Systems Patient is 59 years old male with a history of back pain, cervical neck surgery for neck fusion site cervical 5-6 came with a complaint of cough for last 2 weeks. As per patient patient has been having cough and cold for last 2 weeks. Patient's cough was positive with a greenish yellow sputum, or transudative some running nose. Patient also endorsed fever up to 102 F. reported that he went to [facility] and they gave him some medication like Mucinex and other medication but he did not feel of the prescription.. patient reported that he does not recall why he came in and could not provide detailed history why he is here. Patient reported I do not know how I gotten here. Patient also reported sick contact, his girlfriend also got sick after he was sick. Denied chest pain, constipation, diarrhea, dysuria, acute joint pain or swelling. Initial lab workup revealed leukocytosis with WBC 22.2, mildly elevated AST, serum glucose 136, BUN creatinine ratio 40.6, BUN 34., HGB A1c 5.4, TSH 0.75, sodium 141, patient is a 0.9. Patient tested negative for influenza type A and B CXR revealed- Patchy airspace opacity at the right lower lung. Mild pulmonary vascular congestion and prominent interstitial markings. No sizable effusion or pneumothorax. Cervical fusion hardware. ECHO 2D- Normal left ventricular size and dimension. Normal left ventricular systolic function estimated ejection fraction 60%. There is a grade 1 diastolic dysfunction. Normal right ventricular size and dimension. Normal right ventricular systolic function. Slightly increased right ventricular systolic [id number] mm of mercury PMH-back pain, cervical neck surgery for neck fusion site cervical 5-6 PSH- cervical spine surgery Allergy- penicillin Personal History/ Social History- denies smoking/alcoholism/drug abuse, lives with girlfriend at home Patient was seen today at the bedside. Patient some coughing Cardiovascular- deny acute chest pain or shortness of breath or cough or palpitation Respiratory- denies cough or short of breath or wheezing Gastrointestinal- denies any rectal bleeding, nausea or vomiting Musculoskeletal-denies acute joint swelling or tenderness or redness Neurological- denies acute dysarthria, dysphagia, change in vision Psychiatry- denies depression or SI or HI Skin- denies acute rash or purpura Patient is seen today for clinical evaluation. Labs and chart reviewed. Patient reports feeling better today. Patient is on IV antibiotic ceftriaxone azithromycin, tolerating well. Ordered incentive spirometer. Plan is to titrate NC O2. Objective vital signs Vital Sign Date Time Temp Pulse Resp B/P (MAP) Pulse Ox O2 Delivery O2 Flow Rate FiO2 09/02/24 12:42 98.4 77 16 107/65 (79) 94 98.4 09/02/24 11:10 Room Air 0.0 09/02/24 11:10 21 Total Intake and Output 09/01/24 09/01/24 09/02/24 15:00 23:00 07:00 Intake Total 50 ml 850 ml 450 ml Output Total 395 ml 800 ml Balance 50 ml 455 ml -350 ml medications Current Medications Medications Dose Ordered Sig/Rema Route Start Time Stop Time Status Last Admin Dose Admin Albuterol 2.5 mg Q6HWA NEB 08/30/24 12:00 09/02/24 11:10 2.5 MG Albuterol 2.5 mg Q4HPRN PRN NEB 08/30/24 08:30 09/01/24 22:29 2.5 MG Ipratropium [place] 0.5 mg Q6HWA NEB 08/30/24 12:00 09/02/24 11:10 0.5 MG Ipratropium [place] 0.5 mg Q4HPRN PRN NEB 08/30/24 08:30 09/01/24 10:02 0.5 MG Ondansetron HCl 4 mg Q4HP PRN IV 08/30/24 08:30 Docusate Sodium 100 mg BIDPRN PRN PO 08/30/24 08:30 Enoxaparin Sodium 40 mg DAILY SC 08/30/24 10:00 09/02/24 09:53 40 MG Acetaminophen 650 mg Q6HP PRN PO 08/30/24 08:30 08/31/24 05:55 650 MG Acetaminophen/ Hydrocodone Bitart 1 tab Q4HP PRN PO 08/31/24 09:30 09/01/24 11:10 1 TAB Sodium Chloride 1,000 ml @ 125 mls/hr Q8H IV 08/31/24 11:30 09/02/24 03:30 125 MLS/HR Famotidine 20 mg Q12HR IV 08/31/24 22:00 09/02/24 09:53 20 MG Ceftriaxone Sodium 50 ml @ 100 mls/hr DAILY@09 IV 09/01/24 09:00 09/02/24 09:52 100 MLS/HR Azithromycin 250 ml @ 125 mls/hr DAILY IV 09/01/24 10:00 09/02/24 12:07 125 MLS/HR Ketorolac Tromethamine 30 mg Q6HPRN PRN IV 09/01/24 19:45 09/06/24 19:44 09/02/24 10:00 30 MG Guaifenesin/ Dextromethorphan 10 ml Q4HP PRN PO 09/02/24 09:30 09/02/24 12:07 10 ML Examination General examination- awake, alert, oriented, conversant HEENT- PEERLA, no acute nasal discharge Cardiovascular- S1-S2 audible, rate and rhythm regular, no murmur Respiratory- CTAB, no wheeze or rhonchi Gastrointestinal-nontender, bowel sound+. Nondistended Musculoskeletal-no acute joint swelling or tenderness or redness# Lower extremity- no leg edema Neurological- cranial nerves intact, no acute dysarthria or dysphagia Psychiatry- denies depression or SI or HI Skin- no acute rash or purpura laboratory and microbiology Laboratory Tests 09/02/24 05:58 Test 09/02/24 05:58 Range/Units Serum Glucose 91 74-106 mg/dL Microbiology Date/Time Source Procedure Growth Status 08/31/24 19:30 Voided Urine Urine Culture - Final Complete 08/31/24 10:00 Sputum Gram Stain - Final Resulted 08/31/24 10:00 Sputum Respiratory Culture - Preliminary Resulted 08/31/24 01:40 Nose MRSA Screen - Final Complete 08/30/24 05:38 Blood Blood Culture - Preliminary NO GROWTH AFTER 72 HOURS OF INCUBATION. Resulted Problem List/Assessment/Plan Problem List/Assessment/Plan #Acute hypoxic respiratory failure likely due to pneumonia -ordered intensive spirometry -patient could not complete a full sentence -patient on NC O2 as required -CXR revealed- Patchy airspace opacity at the right lower lung. Mild pulmonary vascular congestion and prominent interstitial markings -continue ceftriaxone g IV daily -continue azithromycin 500 mg daily -continue nebulization as prescribed -pending sputum culture, blood culture, urine culture #Acute pneumonia likely bacterial Gram-positive versus Gram-negative -CXR revealed- Patchy airspace opacity at the right lower lung. Mild pulmonary vascular congestion and prominent interstitial markings -continue ceftriaxone g IV daily -continue azithromycin 500 mg daily -continue nebulization as prescribed #Sepsis likely due to pneumonia --CXR revealed- Patchy airspace opacity at the right lower lung. Mild pulmonary vascular congestion and prominent interstitial markings -continue ceftriaxone g IV daily -continue azithromycin 500 mg daily -continue nebulization as prescribed -continue normal saline 125 mL/hour -monitor vitals # hypotension likely due to sepsis -continue IV normal saline 125 mL/hour -monitor blood pressure #Leukocytosis likely due to pneumonia -continue current management # CLARK likely due to VMN/hemodynamic cause -continue normal saline 125 mL/hour as prescribed # lactic acidosis likely due to hypoxia due to pneumonia improved -continue current management #History of back pain, status post cervical spine surgery -continue current pain meds as prescribed # failure to thrive -dietary consult # ECHO 2D-LVEF 60% Goals of care/advance care planning; FULL CODE; discussed with the patient >15 minutes PUD prophylaxis: Famotidine DVT prophylaxis: Lovenox Plan discussed with Dr. Damon, nursing staff, patient Total time spent on patient evaluation, chart review, assessment and plan, discussion discussion >30 minutes Plan discussed with: Patient Plan discussed with: Patient, Other (RN) My Orders My Orders Orders - PIA HALL Procedure Category Date Status Time * Dietary Consult CONS 09/01/24 Transmitted 17:18 Incentive Spirometry ORDERS 09/02/24 Transmitted 08:03 Guaifenesin-Dextromet PHA 09/02/24 In Process Liquid (Robitussin 09:30 Pt Request For Service PT 09/02/24 Logged 11:13 Date of Service: Sep 02, 2024 Billing Provider: ANTONIO DAMON MD Common Visit Codes: NOT BILLABLE PIA HALL Sep 02, 2024 15:00 ANTONIO DAMON MD Sep 03, 2024 10:45
--- NOTE | 2024-09-02 20:31 | DVHDSRES ---
Discharge Summary Date of Admission Resident Creating Document: PIA HALL RESIDENT Aug 30, 2024 at 08:24 Date of Discharge: Sep 02, 2024 Admitting Diagnosis Acute hypoxic respiratory failure due to Pneumonia with sepsis Labs/Diagnostic Data: Laboratory Results Test 09/02/24 05:58 09/01/24 10:30 09/01/24 05:10 08/31/24 22:15 White Blood Count 6.7 10^3/uL (4.4-10.8) Red Blood Count 3.22 10^6/uL (4.5-5.90) Hemoglobin 10.5 g/dL (13.5-17.5) Hematocrit 30.2 % (41.0-53.0) Mean Corpuscular Volume 93.5 fL (80.0-100.0) Mean Corpuscular Hemoglobin 32.4 pg (28.0-32.0) Mean Corpuscular Hemoglobin Concent 34.6 g/dL (32.0-36.0) Red Cell Distribution Width 14.1 % (11.8-14.3) Platelet Count 345 10^3/uL (140-450) Mean Platelet Volume 9.3 fL (6.9-10.8) Neutrophils (%) (Auto) 71.1 % (37.0-80.0) Lymphocytes (%) (Auto) 15.9 % (10.0-50.0) Monocytes (%) (Auto) 12.2 % (0.0-12.0) Eosinophils (%) (Auto) 0.7 % (0.0-7.0) Basophils (%) (Auto) 0.1 % (0.0-2.0) Neutrophils # (Auto) 4.7 10 ^3/uL (1.6-8.6) Lymphocytes # (Auto) 1.1 10 ^3/uL (0.4-5.4) Monocytes # (Auto) 0.8 10 ^3/uL (0-1.3) Eosinophils # (Auto) 0 10 ^3/uL (0-0.8) Basophils # (Auto) 0 10 ^3/uL (0-0.2) Nucleated Red Blood Cells 0.1 % Sodium Level 142 mmol/L (136-145) Potassium Level 3.7 mmol/L (3.5-5.1) Chloride Level 111 mmol/L (98-107) Carbon Dioxide Level 25 mmol/L (20-31) Anion Gap 6 (5-15) Blood Urea Nitrogen 16 mg/dL (9-23) Creatinine 0.46 mg/dL (0.700-1.30) Glomerular Filtration Rate Calc 119 mL/min (>90) BUN/Creatinine Ratio 34.8 (10.0-20.0) Serum Glucose 91 mg/dL (74-106) Calcium Level 8.4 mg/dL (8.7-10.4) Magnesium Level 1.8 mg/dL (1.6-2.6) Troponin I High Sensitivity < 3 ng/L (</=54) B-Type Natriuretic Peptide 150.38 pg/mL (0-100) SARS-CoV-2 Antigen (Rapid) Negative (NEGATIVE) Test 08/31/24 19:30 08/31/24 06:42 08/30/24 07:00 Urine Color Yellow (Yellow) Urine Clarity Clear (Clear) Urine pH 5.5 (5.0-9.0) Urine Specific [place] 1.027 (1.001-1.035) Urine Protein Trace (Negative) Urine Ketones Negative (Negative) Urine Blood Negative /uL (Negative) Urine Nitrite Negative (Negative) Urine Bilirubin Negative (Negative) Urine Urobilinogen 2 mg/dL (Negative) Urine Leukocyte Esterase Negative /uL (Negative) Urine RBC 7 /hpf (0 - 3) Urine WBC 1 /hpf (0 - 3) Urine Squamous Epithelial Cells Few /hpf (<5) Urine Bacteria None seen /hpf (None Seen) Urine Mucus Few (None Seen) Urine Glucose Normal mg/dL (Normal) Urine Opiates Screen Neg (NEGATIVE) Urine Fentanyl Screen Neg (NEGATIVE) Urine Barbiturates Screen Neg (NEGATIVE) Urine Phencyclidine Screen Neg (NEGATIVE) Urine Amphetamines Screen Pos (NEGATIVE) Urine Benzodiazepines Screen Neg (NEGATIVE) Urine Cocaine Screen Neg (NEGATIVE) Urine Cannabinoids Screen Neg (NEGATIVE) Hemoglobin A1c 5.4 % A1C (<5.7) Lactic Acid Level 1.4 mmol/L (0.4-2.0) Total Bilirubin 0.6 mg/dL (0.2-1.0) Aspartate Amino Transferase (AST) 46 U/L (13-40) Alanine Aminotransferase (ALT) 39 U/L (7-40) Alkaline Phosphatase 72 U/L (46-116) Total Protein 6.5 g/dL (5.7-8.2) Albumin 3.6 g/dL (3.2-4.8) Thyroid Stimulating Hormone (TSH) 0.75 uIU/mL (0.55-4.78) Plasma/Serum Blood Alcohol < 3.0 mg/dL (<10) Hepatitis B Surface Antigen Negative (Negative) Hepatitis C Antibody Negative (Negative) Influenza Type A Antigen Negative (Negative) Influenza Type B Antigen Negative (Negative) Other Laboratory Tests 09/02/24 05:58 Brief Hx & Hospital Course: Patient is 59 years old male with a history of back pain, cervical neck surgery for neck fusion site cervical 5-6 came with a complaint of cough for last 2 weeks. As per patient patient has been having cough and cold for last 2 weeks. Patient's cough was positive with a greenish yellow sputum, or transudative some running nose. Patient also endorsed fever up to 102 F. reported that he went to [facility] and they gave him some medication like Mucinex and other medication but he did not feel of the prescription.. patient reported that he does not recall why he came in and could not provide detailed history why he is here. Patient reported I do not know how I gotten here. Patient also reported sick contact, his girlfriend also got sick after he was sick. Denied chest pain, constipation, diarrhea, dysuria, acute joint pain or swelling. Initial lab workup revealed leukocytosis with WBC 22.2, mildly elevated AST, serum glucose 136, BUN creatinine ratio 40.6, BUN 34., HGB A1c 5.4, TSH 0.75, sodium 141, patient is a 0.9. Patient tested negative for influenza type A and B CXR revealed- Patchy airspace opacity at the right lower lung. Mild pulmonary vascular congestion and prominent interstitial markings. No sizable effusion or pneumothorax. Cervical fusion hardware. ECHO 2D- Normal left ventricular size and dimension. Normal left ventricular systolic function estimated ejection fraction 60%. There is a grade 1 diastolic dysfunction. Normal right ventricular size and dimension. Normal right ventricular systolic function. Slightly increased right ventricular systolic [id number] mm of mercury. During hospital stay patient was treated with IV antibiotic ceftriaxone and azithromycin. Patient's symptom improved clinically. Blood Culture and urine culture and MRSA was negative. Patient left AMA. Patient's clinical condition was undetermined on discharge as patient left AMA Operations or Procedures DIAGNOSTIC IMAGING Diagnostic Imaging Report : [id number] Signed PATIENT: JAYCE TRONCOSO ACCT: [id number] UNIT: [id number] : 1965 LOC: [facility] ROOM / BED: 0246T / A AGE / SEX: 59 / M ADM STATUS: ADM IN SERVICE 0400 ORDERING PHYSICIAN: BELLA VAUGHAN PROCEDURE(s): CXR1 - CHEST XRAY 1 VIEW REASON: pna ORDER NUMBER(s): [id number], ACCESSION NUMBER(s): [id number] CHEST RADIOGRAPH Indication: pna Technique: Single frontal view of the chest was obtained Comparison: XY CHEST PORTABLE on DOS: 08/30/24 IMPRESSION: The heart appears relatively normal in size. Linear patchy airspace opacity in the right mid lung and patchy airspace opacity in the left lower lung. No sizable effusion or pneumothorax. Extensive cervical and thoracic hardware. ATED BY: KASSANDRA DILLON MD DICTATED DATE/TIME: 08/31/24 050 SIGNED BY: KASSANDRA DILLON MD SIGNED DATE/TIME: 08/31/24 050 CC: DIAGNOSTIC IMAGING Diagnostic Imaging Report : [id number] Signed PATIENT: JAYCE TRONCOSO ACCT: [id number] UNIT: [id number] : 1965 LOC: ROOM / BED: / AGE / SEX: 59 / M ADM STATUS: REG ER SERVICE 0024 ORDERING PHYSICIAN: PRASHANT HEARD MD PROCEDURE(s): CXRP - CHEST PORTABLE REASON: SOB ORDER NUMBER(s): [id number], ACCESSION NUMBER(s): [id number] CHEST RADIOGRAPH Indication: SOB Technique: Single frontal view of the chest was obtained Comparison: None IMPRESSION: The heart appears normal in size. Patchy airspace opacity at the right lower lung. Mild pulmonary vascular congestion and prominent interstitial markings. No sizable effusion or pneumothorax. Cervical fusion hardware. ATED BY: KASSANDRA DILLON MD DICTATED DATE/TIME: 08/30/24 0409 SIGNED BY: KASSANDRA DILLON MD SIGNED DATE/TIME: 08/30/24408 CC: Condition at Discharge: Undetermined Final Diagnosis/Problems List #Acute hypoxic respiratory failure likely due to pneumonia #Acute pneumonia likely bacterial Gram-positive versus Gram-negative #Sepsis likely due to pneumonia # hypotension likely due to sepsis #Leukocytosis likely due to pneumonia # CLARK likely due to VMN/hemodynamic cause # lactic acidosis likely due to hypoxia due to pneumonia improved #History of back pain, status post cervical spine surgery # failure to thrive Discharge Disposition: AMA Discharge Instruct/Medications Diet: Regular Discharge Statement: "Patient was advised to return to the ER or call 911 if any headaches, dizziness, shortness of breath, chest pain, abdominal pain, bleeding, fevers, or worsening of medical condition. Patient was counseled about treatment plan, medications, possible side effects, patientverbalized understanding. All questions were answered to the best of my ability. This discharge took greater then 30 minutes in planning, reviewing documentation, counseling the patient, and discussing with other team members." ASSESSMENT ASSESSMENT Assessment Date of Service: Sep 02, 2024 Billing Provider: ANTONIO MAC MD Common Visit Codes: [id number] DISCH DAY >30min PIA HALL Sep 02, 2024 20:31 ANTONIO MAC MD Sep 03, 2024 10:45
--- NOTE | 2024-09-10 13:13 | ECG ---
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
--- NOTE | 2024-09-10 13:58 | ECG ---
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
== END 2024-09-02 18:15 | disposition left against medical advice (07) | DRG 720 ==
LOC: EDBD 00:06 → ER 00:06 → EDSEX 00:06 → TELE 08:24 → TELE-EAST 23:10
PROVIDERS: ADMIT Internal Medicine Geriatric Medicine; ATTEND Emergency Medicine
DX: A41.50 Gram-negative sepsis, unspecified (principal); J96.01 Acute respiratory failure with hypoxia; N17.0 Acute kidney failure with tubular necrosis; J15.69 Pneumonia due to other Gram-negative bacteria; G93.40 Encephalopathy, unspecified; E87.20 Acidosis, unspecified; M54.9 Dorsalgia, unspecified; Z20.822 Contact with and (suspected) exposure to COVID-19; J15.9 Unspecified bacterial pneumonia; R62.7 Adult failure to thrive; Z88.0 Allergy status to penicillin; Z68.1 Body mass index [BMI] 19.9 or less, adult
CPT/HCPCS: 36415; 71045; 80048; 80053; 80307; 80320; 81001; 83036; 83605; 83735; 83880; 84443; 84484; 85025; 86803; 87040; 87070; 87077; 87081; 87086; 87186; 87205; 87340; 87426; 87804; 93005; 93306; 94640; G0378; J1885; J3490

== ENCOUNTER 2025-03-30 17:11 | Emergency (ER) | payer MEDICAID ==
[~2025-03-30] VITALS: Ht 162.6 cm; Wt 52.4 kg
[~2025-03-30 17:11] MED LIST: ACET-1881 PO; BENZ100C97 PO; DEXT1SYP9 PO; LEVO500T91 PO; PSEU120T18 PO
[2025-03-30 17:30] VITALS: BP 121/88; RESP 18; TEMP 98.8; O2SAT 97
--- NOTE | 2025-03-30 17:30 | ECG ---
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
[2025-03-30 17:52] VITALS: PULSE 81
--- NOTE | 2025-03-30 17:52 | ED.PDOC ---
History of Present Illness HPI Comments 60-year-old male who comes in with chief complaint of shortness a breath and body aches. The patient has also had some fever. The patient has also had a cough. This morning the patient is started to get a more weak and then fell down outside of his house. Upon arrival, the patient is still complaining of s ome shortness for breath. The patient does have a history of pneumonia in the past. He was able to ambulate into the emergency department's but states that he got more short of breath. Chief Complaint: Shortness of Breath Time Seen by MD: 17:20 Primary Care Provider: HUNTER Reviewed Notes: Nurses Notes, Medications, Allergies Allergies: Coded Allergies: Penicillins (Verified Allergy, Unknown, 12/30/18) Home Meds Active Scripts Levofloxacin Hemihydrate (LEVOFLOXACIN) 500 Mg Tab, 1 TAB PO DAILY, #7 TAB Prov:ANTONIO MAC MD 09/02/24 Dextromethorphan-Guaifenesin (Robitussin-Dm) 10 Ml Sr, 10 ML PO Q4HP PRN, #240 ML Prov:ANTONIO MAC MD 09/02/24 Reported Medications Benzonatate (Benzonatate) 100 Mg Cap, 1 CAP PO TIDP PRN for FOR COUGH, #30 CAP 08/31/24 Pseudoephedrine-Guaifenesin (Mucinex D) 1 Tab Tab, 1 TAB PO Q12HP PRN for FOR COUGH, #20 TAB 08/31/24 Acetaminophen (Acetaminophen) 325 Mg Tab, 500 MG PO Q6HP PRN for MILD PAIN for 30 Days, MG 0 Refills 08/31/24 Information Source: Patient Mode of Arrival: Ambulatory Severity: Moderate Timing: Hours Duration: Since onset Prehospital treatment: None Associated signs and symptoms Body aches with fever and shortness of breaths Past Medical History PAST MEDICAL HISTORY: Kidney Stones Past Medical History (Other): Pneumonia history Surgical History: Denies all surgeries Surgical History (Other): Left hip surgery, back surgery, neck surgery Family History Family History: Family hx of DM Social History Smoker: Non-Smoker Alcohol: Denies ETOH Use Drugs: Denies Drug Use Lives In: Home Constitutional: denies: chills, diaphoresis, fatigue, fever, malaise, sweats, weakness, others EENTM: denies: blurred vision, double vision, ear bleeding, ear discharge, ear drainage, ear pain, ear ringing, eye pain, eye redness, hearing loss, mouth pain, mouth swelling, nasal discharge, nose bleeding, nose congestion, nose pain, photophobia, tearing, throat pain, throat swelling, voice changes, others Respiratory: denies: cough, hemoptysis, orthopnea, SOB at rest, shortness of breath, SOB with excertion, stridor, wheezing, others Cardiovascular: denies: chest pain, dizzy spells, diaphoresis, Dyspnea on exertion, edema, irregular heart beat, left arm pain, lightheadedness, palpita tions, PND, syncope, others Gastrointestinal: denies: abdomen distended, abdominal pain, blood streaked tesfaye wels, constipated, diarrhea, dysphagia, difficulty swallowing, hematemesis, melena, nausea, poor appetite, poor fluid intake, rectal bleeding, rectal pain, vomiting, others Genitourinary: denies: burning, dysuria, flank pain, frequency, hematuria, incontinence, penile discharge, penile sore, pain, testicle pain, testicle swelling, urgency, others Neurological: denies: dizziness, fainting, headache, left sided numbness, left sided weakness, numbness, paresthesia, pre-existing deficit, right sided numbness, right sided weakness, seizure, speech problems, tingling, tremors, weakness, others Musculoskeletal: denies: back pain, gout, joint pain, joint swelling, muscle pain, muscle stiffness, neck pain, others Integumetry: denies: bruises, change in color, change in hair/nails, dryness, laceration, lesions, lumps, rash, wounds, others Allergic/Immunocompromised: denies: Difficulty Healing, Frequent Infections, Hives, Itching, others Hematologic/Lymphatic: denies: anemia, blood clots, easy bleeding, easy bruisin g, swollen glands, others Endocrine: denies: excessive hunger, excessive sweating, excessive thirst, excessive urination, flushing, intolerance to cold, intolerance to heat, unexplained weight gain, unexplained weight loss, others Psychiatric: denies: anxiety, bipolar disorder, depression, hopeless, panic disorder, schizophrenia, sleepless, suicidal, others Physical Exam General Appearance: Mild Distress HEENT: Normal ENT Inspection, Pharynx Normal, TMs Normal Neck: Full Range of Motion, Non-Tender, Normal, Normal Inspection Respiratory: Chest Non-Tender, Lungs Clear, No Accessory Muscle Use, No Respiratory Distress, Normal Breath Sounds Cardiovascular: No Edema, No JVD, No Murmur, No Gallop, Normal Peripheral Pulses, Regular Rate/Rhythm Breast Exam: Deferred Gastrointestinal: No Organomegaly, Non Tender, No Pulsatile Mass, Normal Bowel Sounds, Soft Genitalia: Deferred Pelvic: Deferred Rectal: Deferred Extremities: No calf tenderness, Normal capillary refill, Normal inspection, Normal range of motion, Non-tender, No pedal edema Musculoskeletal : Apperance: Normal Neurologic: Alert, occupational medicine officer II-XII nml as Tested, No Motor Deficits, Normal Affect, Normal Mood, No Sensory Deficits Cerebellar Function: Normal Reflexes: Normal Skin: Dry, Normal Color, Warm Lymphatic: No Adenopathy Was a procedure done? Was a procedure done?: No EKG EKG : Pulse Rate (adult): 81 [place]: Normal Cardiac Rhythm: NSR Hypertrophy: LAE, LVH Differential Dx Considerations may include: Pneumonia, CHF, COPD exacerbation X-Ray, Labs, Meds, VS Vital Signs Date Time Temp Pulse Resp B/P (MAP) Pulse Ox O2 Delivery O2 Flow Rate FiO2 03/30/25 17:52 81 03/30/25 17:30 98.8 70 18 121/88 (99) 97 98.8 03/30/25 17:22 98.8 70 18 121/88 (99) 97 98.8 03/30/25 17:21 81 The chest x-ray shows: IMPRESSION: Mild hyperinflation of the lungs. Otherwise, no evidence of acute ca rdiopulmonary disease. We attempted to draw blood on this patient but it seems that the patient has eloped from the department's Images Reviewed?: Images reviewed and evaluated by me Time of 1ST Reevaluation: 19:34 Reevaluation 1ST: The patient has eloped Patient Education/Counseling: Diagnosis, Treatment, Prognosis Family Education/Counseling: No Family Present SEPSIS Sepsis Screen Date sepsis recognized/suspect: Mar 30, 2025 Time Sepsis recognized/suspect: 1710 Recent Procedure: No On Antibiotic Therapy: No Respiratory Rate >20: No Heart Rate >90: No Temp<36 C (96.8 F) or >38.3 C: No SBP <90 or MAP <65 mmHG: No New Acute Mental Status Change: No Is the patient on CPAP, BIPAP,: No Physician Orders Complete Blood Count (03/30/25 17:28) B-Type Natriuretic Peptide (03/30/25 17:28) Urinalysis (03/30/25 17:28) [place]ock Iv (03/30/25 17:28) Pulse Oximetry (03/30/25 17:28) Product Development Director (03/30/25 17:28) Blood Pressure (03/30/25 17:28) Chest Two Views Routine (03/30/25 17:28) Basic Metabolic Panel (03/30/25 17:28) Vital Signs Date Time Temp Pulse Resp B/P (MAP) Pulse Ox O2 Delivery O2 Flow Rate FiO2 03/30/25 17:52 81 03/30/25 17:30 98.8 70 18 121/88 (99) 97 98.8 03/30/25 17:22 98.8 70 18 121/88 (99) 97 98.8 03/30/25 17:21 81 Departure 1 Departure Time of Disposition: 19:34 Impression: Primary Impression: Shortness of breath Disposition: 07 LEFT AWOL/ELOPED Condition: Fair Critical Care Note Critical Care Time?: Yes (35 min-critical care time only) Stability Stability form required: No Heart Score Heart Score: Heart Score Response (Comments) Value History N/A 0 EKG N/A 0 Age N/A 0 Risk Factors N/A 0 Troponin N/A 0 Total 0 PATTI SOTO MD Mar 30, 2025 17:52
--- NOTE | 2025-03-30 17:59 | DVH ---
XY CHEST TWO VIEWS ROUTINE CLINICAL HISTORY: sob COMPARISON: None TECHNIQUE: Frontal and lateral view of the chest was obtained FINDINGS: Lines and Tubes: None Lungs: No focal consolidation. Pleura: No effusion. No pneumothorax. Hyperinflation of the lungs. Cardiomediastinal contours: Unremarkable Bones: No acute osseous abnormality. Cervical thoracic fixation hardware is noted. IMPRESSION: Mild hyperinflation of the lungs. Otherwise, no evidence of acute cardiopulmonary disease.
== END 2025-03-30 19:36 | disposition left against medical advice (07) ==
LOC: ER 17:11
DX: R06.02 Shortness of breath (principal); Z87.442 Personal history of urinary calculi; Z98.890 Other specified postprocedural states; Z88.0 Allergy status to penicillin; Z87.01 Personal history of pneumonia (recurrent); Z79.899 Other long term (current) drug therapy
CPT/HCPCS: 71046; 93005